=== PATIENT | female | born 1940 | race Caucasian/White ===

== ENCOUNTER 2017-07-06 09:26 | Emergency (ER) | payer MEDICARE, BC ==
[~2017-07-06] VITALS: Ht 160 cm; Wt 94.0 kg
[2017-07-06 09:37] VITALS: BP 131/62; PULSE 70; RESP 16; TEMP 99.7; O2SAT 93
[2017-07-06] MEDS ORDERED: PREV30CA36 PO (09:55)
[2017-07-06] MEDS ORDERED: RED600TA PO (09:55)
[2017-07-06] MEDS ORDERED: CETI10CH CHEW (09:55)
[2017-07-06] MEDS ORDERED: CALC600T5 PO (09:55)
[2017-07-06] MEDS ORDERED: LORA0.5T PO (09:55)
[2017-07-06] MEDS ORDERED: ASPI81CH6 CHEW (09:55)
[2017-07-06] MEDS ORDERED: FISH1000 (09:55)
[2017-07-06] MEDS ORDERED: FLUT50SP EACH NARE (09:55)
[2017-07-06] MEDS ORDERED: MAGN250T11 PO (09:55)
[2017-07-06] MEDS ORDERED: CELE40TA PO (09:55)
[2017-07-06] MEDS ORDERED: VERA180C3 PO (09:55)
[2017-07-06] MEDS ORDERED: VITA1000 PO (09:55)
--- NOTE | 2017-07-06 10:28 | PD ---
HPI Chief Complaint: Cold / Flu Symptoms Time Seen by Provider: 10:14 Travel History International Travel<30 days: No Contact w/Intl Traveler<30days: No Traveled to known affect area: No History of Present Illness HPI 77yo F presented to the ED with "cold-like symptoms." She states that three days ago she started getting a productive cough, sore throat, congestion and generalized weakness. She has not taken her temperature at home but was experiencing chills off and on. She reports that she came to the [facility] ED several days ago with her son-in-law for "flu-like symptoms" and was diagnosed with the flu. Past medical history includes HTN and OA. She denies any earache, nausea, vomiting, diarrhea or abdominal pain. She does admit to exertional dyspnea. She denies tobacco use, a history of asthma or COPD. Modifying Factors: None Associated Signs & Symptoms: Cough, sore throat, congestion, weakness, body aches, fevers and chills Risk Factors: Sick contact with flu PFSH Past Medical History Anxiety: Yes Diminished Hearing: No GERD: Yes Hypertension: Yes Influenza Vaccination: Yes ?: Not Menopausal: Yes Social History Alcohol Use: Yes Tobacco Use: No Allergies-Medications (Allergen,Severity, Reaction): Coded Allergies: No Known Allergies (Unverified , 07/06/17) Reported Meds & Prescriptions Reported Meds & Active Scripts Active Reported Red Yeast Rice (Red Yeast Rice Extract) 600 Mg Tab 1,200 Mg PO DAILY Magnesium Oxide 250 Mg Tab 250 Mg PO DAILY Cetirizine (Cetirizine HCl) 10 Mg Chew 10 Mg CHEW DAILY Fish Oil (Purcell-3 Fatty Acids) 340 Mg-1,000 Mg Cap 0 Vitamin D-1000 (Cholecalciferol) 1,000 Unit Tab 2,000 Units PO DAILY Calcium (Calcium Carbonate) 600 Mg Calcium (1500 Mg) Tab 600 Mg PO DAILY Celexa (Citalopram Hydrobromide) 40 Mg Tab 40 Mg PO DAILY Fluticasone Nasal [place] 50 Mcg/Act Naspr 50 Mcg EACH NARE BID 50 mcg/spray Aspirin Low Dose (Aspirin) 81 Mg Chew 81 Mg CHEW DAILY Verapamil SR (Verapamil HCl) 180 Mg Cap 180 Mg PO DAILY Prevacid (Lansoprazole) 30 Mg Capdr 30 Mg PO DAILY Lorazepam 0.5 Mg Tab 0.5 Mg PO BID PRN Review of Systems Except as stated in HPI: all other systems reviewed are Neg General / Constitutional: Positive: Chills HENT: Positive: Sore Throat, Congestion Physical Exam Narrative GENERAL: 77yo W/F who is well-developed and well-nourished in mild distress. Alert and oriented x3. SKIN: Warm and dry. HEAD: Atraumatic. Normocephalic. EYES: Pupils equal and round. No scleral icterus. No injection or drainage. ENT: No nasal bleeding or discharge. Mucous membranes pink and moist. Mild pharyngeal erythema. NECK: Trachea midline. No JVD. Supple. CARDIOVASCULAR: Regular rate and rhythm. RESPIRATORY: No accessory muscle use. Bilateral diffuse expiratory wheezing. GASTROINTESTINAL: Abdomen soft, non-tender, nondistended. Hepatic and splenic margins not palpable. MUSCULOSKELETAL: Extremities without clubbing, cyanosis, or edema. No obvious deformities. NEUROLOGICAL: Awake and alert. No obvious cranial nerve deficits. Motor grossly within normal limits. Normal speech. PSYCHIATRIC: Appropriate mood and affect; insight and judgment normal. Data Data Last Documented VS Vital Signs Date Time Temp Pulse Resp B/P (MAP) Pulse Ox O2 Delivery O2 Flow Rate FiO2 07/06/17 09:48 Room Air 07/06/17 09:37 99.7 70 16 131/62 (85) 93 Orders Orders Influenzae A/B Antigen (07/06/17 09:53) Chest, Single Ap (07/06/17 10:14) Prednisone (Deltasone) (07/06/17 10:30) Albuterol-Ipratropium Neb (Duoneb Neb) (07/06/17 10:30) MDM Medical Decision Making Medical Screen Exam Complete: Yes Emergency Medical Condition: Yes Medical Record Reviewed: Yes Interpretation(s) Last 24 hours Impressions Chest X-Ray 07/06/17 1014 Signed Impressions: Service Date/Time: Thursday, July 06, 2017 10:27 - CONCLUSION: 1.4 cm right mid lung nodular density. Recommend chest CT to evaluate for pulmonary nodule. Bryan Arredondo MD Differential Diagnosis Influenza versus bronchitis versus pneumonia versus viral syndrome versus URI Narrative Course Considering patient's sick contact, influenza testing was done and it is positive. She is wheezing and Solu-Medrol and nebulizers were given with improvement in symptoms. Chest x-ray shows a right sided pulmonary nodule which patient states that her primary care physician has been following. There is no signs of pneumonia on chest x-ray. On reevaluation at 11 AM, she is feeling improved and the wheezing has subsided. At this point, I suspect that most of his symptoms are secondary to influenza that she may have some bronchitis or viral pneumonitis as well. Other vital signs are stable. I'm not suspecting sepsis in this case considering her symptoms and her vital signs. My plan would be to continue treatment for bronchitis and to also treat her with Tamiflu considering that her symptoms are fairly early in the course. She states she is about 2-3 days out. Return for any worsening in symptoms as necessary. The plan has been discussed with her and she states understanding. Diagnosis Primary Impression: Influenza Additional Impression: Bronchitis Med/Other Pt SpecificInfo: Prescription(s) given Scripts Azithromycin (Zithromax Z-Rohit) 250 Mg Dspk 250 MG PO DIRECTED for Infection, #1 DSPK 0 Refills 500 MG (2 tabs) day 1, then 1 tab days 2-5. Prov: Jesse Granado MD 07/06/17 Oseltamivir (Tamiflu) 75 Mg Cap 75 MG PO BID for Mgmt Viral Infection for 5 Days, #10 CAP 0 Refills Prov: Jesse Granado MD 07/06/17 Albuterol 6.7 GM Inh (Proventil Hfa 6.7 GM Inh) 90 Mcg/Act Aer 2 PUFF INH Q6H Y for SHORTNESS OF BREATH, #1 INHALER 0 Refills Prov: Jesse Granado MD 07/06/17 Prednisone (Prednisone) 50 Mg Tab 50 MG PO DAILY for 5 Days, #5 TAB 0 Refills Prov: Jesse Granado MD 07/06/17 Disposition: 01 DISCHARGE HOME Condition: Stable Jesse Granado MD Jul 06, 2017 10:28
[2017-07-06] MEDS: RESP: ALBUTEROL 2.5 MG/IPRATROPIUM 0.5 MG NEB (SCH) INH (10:29)
[2017-07-06] MEDS ORDERED: predniSONE 50 MG TAB PO ONE (10:30)
--- NOTE | 2017-07-06 10:51 | RADRPT ---
EXAM DATE/TIME: 07/06/2017 10:27 [place] COMPARISON: No previous studies available for comparison. INDICATIONS : Cough, chest congestion, flu like symtoms MEDICAL HISTORY : Lung nodules SURGICAL HISTORY : None. ENCOUNTER: Initial ACUITY: 2 days PAIN SCORE: 0/10 LOCATION: Bilateral chest FINDINGS: Single AP view of the chest. 1.4 cm right mid lung nodular density. Lungs otherwise clear. No evidenc e of pleural effusion or pneumothorax. Evidence of old left proximal humerus fracture with surgical h ardware in place. Cardiomediastinal silhouette within normal limits. CONCLUSION: 1.4 cm right mid lung nodular density. Recommend chest CT to evaluate for pulmonary nodule. Bryan Arredondo MD on July 06, 2017 at 10:45 Board Certified Radiologist. This report was verified electronically.
[2017-07-06] MEDS ORDERED: ALBU6.7H INH (11:04)
[2017-07-06] MEDS ORDERED: ZITHTAB PO (11:04)
[2017-07-06] MEDS ORDERED: PRED50 PO (11:04)
[2017-07-06] MEDS ORDERED: OSEL75 PO (11:04)
[2017-07-06 11:06] VITALS: BP 141/55; PULSE 76; RESP 18; TEMP 99.1; O2SAT 96
== END 2017-07-06 11:14 | disposition home or self-care (01) ==
LOC: PHED 09:26
DX: J10.1 Influenza due to other identified influenza virus with other respiratory manifestations (principal); J40 Bronchitis, not specified as acute or chronic; R06.2 Wheezing; I10 Essential (primary) hypertension; F41.9 Anxiety disorder, unspecified
CPT/HCPCS: 71045; 87804; 94640; 94664; 99284; J7512